=== PATIENT | male | born 1950 | race Caucasian/White ===

== ENCOUNTER 2017-08-02 12:19 | Outpatient (CLI) | payer BC ==
[2017-08-02 13:24] LABS: #Eosinphils 0.3 thou/uL (0.0-0.7); #Lymphocytes 0.6 thou/uL (1.20-3.40); #Monocytes 0.5 thou/uL (0.11-0.59); #Neutrophils 3.3 thou/uL (1.40-6.50); %Eosinophils 5.5 % (0.0-10.0); %Lymphocytes 13.4 % (21.0-51.0); %Monocytes 11.1 % (0.0-10.0); Mean Platelet Volume 8.6 fL (7.4-10.4); Red Blood Cell (RBC) Count 4.24 mill/uL (4.70-6.10); White Blood Cell (WBC) Count 4.7 thou/uL (4.8-10.8)
[2017-08-02 13:51] LABS: Anion Gap 12 mmol/L (10-20); BUN (Urea Nitrogen) 13 mg/dL (8.4-25.7); Calc. Creatinine Clearance 0 mL/min (70-130); Calcium 9.5 mg/dL (7.8-10.44); Carbon Dioxide 27 mmol/L (23-31); Chloride 104 mmol/L (98-107); Estimated GFR-MDRD Greater than 90
--- NOTE | 2017-08-02 18:13 | EKG ---
Test Reason : Blood Pressure : / mmHG Vent. Rate : 052 BPM Atrial Rate : 052 BPM P-R Int : 156 ms QRS Dur : 100 ms QT Int : 434 ms P-R-T Axes : 050 -44 006 degrees QTc Int : 403 ms Sinus bradycardia Left axis deviation No other notable changes. Abnormal ECG When compared with ECG of 17-JAN-2002 07:18, Vent. rate has increased BY 20 BPM Confirmed by BERYL NASCIMENTO ([id number]) on 08/02/2017 6:13:23 PM Referred By: BRENNON Confirmed By:BERYL NASCIMENTO
== END 2017-08-02 12:20 | disposition home or self-care (01) ==
LOC: LABBT 12:19
PROVIDERS: ATTEND Surgery
DX: Z01.818 Encounter for other preprocedural examination (principal); K42.9 Umbilical hernia without obstruction or gangrene; K40.90 Unilateral inguinal hernia, without obstruction or gangrene, not specified as recurrent
CPT/HCPCS: 80048; 85025; 93005; 93010

== ENCOUNTER 2017-08-03 05:51 | Day surgery (SDC) | payer BC ==
[2017-08-02 12:24] VITALS: BMI 25.7
[2017-08-03] MEDS ORDERED: Fentanyl 100 MCG/2 ML VIAL ONE (06:19)
[2017-08-03] MEDS ORDERED: Midazolam HCl 2 mg/2 ml Vial ONE (06:19)
[2017-08-03] MEDS ORDERED: Fentanyl 250 MCG/5 ML VIAL ONE (06:19)
[2017-08-03] MEDS ORDERED: CEFAZOLIN/Water 2 GM/20 ML SYRINGE ONE (06:30)
[2017-08-03] MEDS ORDERED: Bupivacaine 0.25% HCL 30 ML VIAL ONE (06:32)
[2017-08-03] MEDS ORDERED: Lidocaine 1% w/Epinephrine 1:200K 30 ML VIAL ONE (06:32)
[2017-08-03] MEDS ORDERED: Ondansetron HCl/PF 4 MG/2 ML Vial ONE (16:54)
[2017-08-03] MEDS ORDERED: Glycopyrrolate 0.2 MG/ML 5 ML SYRINGE ONE (16:54)
[2017-08-03] MEDS ORDERED: Propofol 200 MG/20 ML VIAL ONE (16:54)
[2017-08-03] MEDS ORDERED: ePHEDrine/0.9% NaCl/PF SYRINGE 50 mg/10 ml ONE (16:54)
[2017-08-03] MEDS ORDERED: Lidocaine 1% PF 5 ML VIAL ONE (16:54)
[2017-08-03] MEDS ORDERED: Dexamethasone 20 MG/5 ML VIAL ONE (16:54)
[2017-08-03] MEDS ORDERED: Ketorolac Tromethamine 30 MG/ML VIAL ONE (16:54)
--- NOTE | 2017-08-04 13:49 | OP ---
DATE OF PROCEDURE: 08/03/2017 PREOPERATIVE DIAGNOSIS: Left inguinal hernia and umbilical hernia. POSTOPERATIVE DIAGNOSIS: Left inguinal hernia and umbilical hernia. PROCEDURE: Laparoscopic robot assisted left inguinal hernia repair with mesh and an umbilical hernia with mesh, open. SURGEON: Zach West M.D. ANESTHESIA: General. ESTIMATED BLOOD LOSS: Minimal. COMPLICATIONS: None. SPECIMEN: None. TECHNIQUE: The patient was taken to the operating room and placed supine on the table. After genera l anesthetic was obtained, a Alonzo was placed. The abdomen was shaved, prepped and draped in a steri le fashion. Curved incision made above the umbilicus. Cautery was used to dissect down to the umbil ical stalk. The umbilical stalk was amputated from the fascia, exposing umbilical defect. A 12-mm t rocar was placed and high-flow pneumoperitoneum was obtained. The patient was placed in Trendelenbur g position, 8 mm robot ports were placed in the right and left abdomen. All ports were docked to the robot. The peritoneum was opened above the defect in the left lower quadrant and dissection was per formed into the preperitoneal space. The full iliopectineal line was exposed, pubic tubercle was exp osed all the way to the anterior iliac crest laterally. Indirect hernia sac was dissected out of the internal ring, all the way back up high on fascia. The ProGrip mesh was rolled and placed through t he camera port and placed over the iliopectineal line. The center of it was centered over the mba intern al ring. The ProGrip mesh was unfolded, up and down to completely cover the direct, indirect and fem oral areas. The peritoneum was reapproximated using 3-0 Stratafix suture. All port sites were infil trated using local anesthetic. All ports were removed under camera visualization. Pneumoperitoneum was let down. Proceed ventral patch small brought into the sterile field and was placed in the umbil ical defect. The tails were laid out lateral. The tails were sewn via U stitch of Prolene to the ed ges of the fascia. The tails were then cut at the level of the fascia. The wound is irrigated. The umbilical stalk is tacked back down using 3-0 Vicryl. Skin was closed using running 4-0 Monocryl an d Dermabond. The patient went to recovery in stable condition. All instrument counts, needle counts , and lap counts were correct.
== END 2017-08-03 13:15 | disposition home or self-care (01) ==
LOC: SDC 05:51
PROVIDERS: ATTEND Surgery
PROC: 8E0W4CZ Robotic Assisted Procedure of Trunk Region, Percutaneous Endoscopic Approach (ICD-10-PCS; principal; 2017-08-03)
PROC: 0WUF0JZ Supplement Abdominal Wall with Synthetic Substitute, Open Approach (ICD-10-PCS; principal; 2017-08-03)
PROC: 0YU64JZ Supplement Left Inguinal Region with Synthetic Substitute, Percutaneous Endoscopic Approach (ICD-10-PCS; principal; 2017-08-03)
DX: K40.90 Unilateral inguinal hernia, without obstruction or gangrene, not specified as recurrent (principal); K42.9 Umbilical hernia without obstruction or gangrene
CPT/HCPCS: 51798; C1781; J0131; J1100; J1885; J2001; J2250; J2405; J2704; J3010; S0020